=== PATIENT | female | born 1965 | race Caucasian/White ===

== ENCOUNTER 2017-04-02 18:28 | Emergency (ER) | payer OTHER ==
[~2017-04-02] VITALS: Ht 162.6 cm; Wt 70.3 kg
[~2017-04-02 18:28] MED LIST: CEFTIN250 MG PO; NAPR500T14; PROVENTIL3 ML/2.5 M; PROZAC20 MG; VISTARIL25 MG
== END 2017-04-03 00:49 | disposition home or self-care (01) ==
LOC: ER 18:28
DX: K52.9 Noninfective gastroenteritis and colitis, unspecified (principal)

== ENCOUNTER 2017-04-19 11:10 | Emergency (ER) | payer OTHER ==
[~2017-04-19] VITALS: Ht 160 cm; Wt 80.7 kg
== END 2017-04-19 13:30 | disposition home or self-care (01) ==
LOC: ER 11:10
DX: T16.1XXA Foreign body in right ear, initial encounter (principal); W45.8XXA Other foreign body or object entering through skin, initial encounter; Y93.89 Activity, other specified; Y92.89 Other specified places as the place of occurrence of the external cause; Y99.8 Other external cause status

== ENCOUNTER 2017-09-19 08:56 | Outpatient (CLI) | payer OTHER | END 2017-09-19 09:04 | disposition home or self-care (01) | LOC: MAMO-SONO 08:56 | DX: Z12.31 Encounter for screening mammogram for malignant neoplasm of breast (principal); Z12.39 Encounter for other screening for malignant neoplasm of breast ==

== ENCOUNTER 2017-09-26 12:33 | Outpatient (CLI) | payer OTHER | END 2017-09-26 12:54 | disposition home or self-care (01) | LOC: MAMO-SONO 12:33 | DX: N64.89 Other specified disorders of breast (principal) ==

== ENCOUNTER 2017-10-24 13:36 | Emergency (ER) | payer OTHER ==
[~2017-10-24] VITALS: Ht 162.6 cm; Wt 74.4 kg
== END 2017-10-24 17:23 | disposition home or self-care (01) ==
LOC: ER 13:36
DX: J06.9 Acute upper respiratory infection, unspecified (principal)